=== PATIENT | male | born 1965 | race Caucasian/White ===

== ENCOUNTER 2022-08-06 17:26 | Emergency (ER) | payer OTHER ==
[2022-08-06] MEDS ORDERED: ERYTHROMYCIN OP1 GM EYELF (19:48)
== END 2022-08-06 20:00 | disposition home or self-care (01) ==
LOC: ER1 17:26
DX: T15.02XA Foreign body in cornea, left eye, initial encounter (principal); F17.210 Nicotine dependence, cigarettes, uncomplicated; E11.9 Type 2 diabetes mellitus without complications; I25.10 Atherosclerotic heart disease of native coronary artery without angina pectoris; I10 Essential (primary) hypertension
CPT/HCPCS: 99283